=== PATIENT | male | born 1950 | race Two or more races ===

== ENCOUNTER 2024-07-10 10:32 | Emergency (ER) | payer MEDICARE, MEDICAID, SELFPAY ==
[2024-07-10 10:33] VITALS: BMI 32.8
[2024-07-10 10:42] VITALS: BP 156/94; PULSE 77; RESP 18; TEMP 36.3; O2SAT 97; BMI 32.8
--- NOTE | 2024-07-10 10:44 | XR_ITS ---
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
--- NOTE | 2024-07-10 10:44 | XR_ITS ---
EXAMINATION: Ankle, left 3 views . 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
--- NOTE | 2024-07-10 11:24 | EDNOTE_ITS ---
<Statement entered by Sanaz Aguillon MD - 07/11/24 14:26> As co-signing physician, I was present and available for consult prn. I concur with the plan and care as documented by the midlevel provider. Lower Extremity Injury RME/HPI General Chief Complaint: Ankle/Foot Injury Stated Complaint: HURT L ANKLE AGAINST SIDEWALK X1 MONTH AGO Time Seen by Provider: 07/10/24 10:40 Arrival date/time: 07/10/24 10:32 74-year-old male presents to the emergency department today for complaints of left ankle pain ongoing x 1 month after an injury patient was seen by news video editor and referred to the ER for further evaluation to rule out osteomyelitis Limitations: no limitations Related Data Allergies Allergy/AdvReac Type Severity Reaction Status Date / Time No Known Allergies Allergy Verified 07/10/24 10:35 Review of Systems Review of Systems Systems Reviewed: All systems reviewed, normal except as documented Constitutional Constitutional: Reports system reviewed and no additional complaints, except as documented, Denies fever(s) and Denies headache(s) Eyes Eyes: Reports system reviewed and no additional complaints, except as documented and Denies blurry vision ENT Ears, Nose, Mouth, and Throat: Reports system reviewed and no additional complaints, except as documented, Denies headache(s), Denies nasal congestion and Denies nasal discharge Cardiovascular Cardiovascular: Reports system reviewed and no additional complaints, except as documented, Denies chest pain and Denies dyspnea Respiratory Respiratory: Reports system reviewed and no additional complaints, except as documented, Denies chest congestion, Denies cough and Denies dyspnea Gastrointestinal Gastrointestinal: Reports system reviewed and no additional complaints, except as documented and Denies abdominal pain Musculoskeletal Musculoskeletal: Reports system reviewed and no additional complaints, except as documented, Reports arthralgias, Denies numbness, Reports stiffness and Denies tingling Integumentary/Breasts Skin/Breast: Reports system reviewed and no additional complaints, except as documented and Denies rash Neurologic Neurologic: Reports system reviewed and no additional complaints, except as documented, Reports as per HPI, Denies headache(s), Denies numbness and Denies tingling Past Medical History Social History SMOKING STATUS: Never smoker ED Exam General Limitations: Present no limitations General appearance: Present alert and in no apparent distress Head Head exam: Present atraumatic Eye Eye exam: Present normal appearance, PERRL and EOMI; Absent conjunctival injection ENT ENT exam: Present normal exam, normal oropharynx and mucous membranes moist Neck Neck exam: Present normal inspection, full ROM and trachea midline Chest Chest inspection: Present normal inspection and symmetric chest wall rise Respiratory Respiratory exam: Present normal lung sounds bilaterally Cardiovascular Cardiovascular exam: Present regular rate, normal rhythm and normal heart sounds Abdominal Exam Abdominal exam: Present soft and normal bowel sounds Extremities Exam Extremities exam: Present normal inspection, full ROM, tenderness, normal capillary refill and joint swelling; Absent pedal edema or calf tenderness Back Exam Back exam: Present normal inspection and full ROM Neurological Exam Neurological exam: Present alert, oriented X3, CN II-XII intact, normal gait and reflexes normal; Absent motor sensory deficit Psychiatric Psychiatric exam: Present normal affect and normal mood Skin Skin exam: Present warm, dry, intact and normal color Course Quality Measures none Orders Category Date Time Status XR ankle comp LT min 3V Stat Exams 07/10/24 10:44 Completed XR foot comp LT min 3V Stat Exams 07/10/24 10:44 Completed Vital Signs Vital signs: Vital Signs Temperature 97.4 F 07/10/24 10:42 Pulse Rate 77 07/10/24 10:42 Respiratory Rate 18 07/10/24 10:42 Blood Pressure 156/94 H 07/10/24 10:42 Pulse Oximetry (%) 97 07/10/24 10:42 Oxygen Delivery Method Room Air 07/10/24 10:42 O2 saturation 98% room air within the limits Extremity Injury, Lower MDM Narrative MDM Narrative:: 74-year-old male presents to the emergency department today for complaints of left ankle pain ongoing x 1 month after an injury patient was seen by news video editor and referred to the ER for further evaluation to rule out osteomyelitis On exam patient well-appearing patient does not appear ill or toxic in no acute distress Imaging obtained no acute fractures or osteomyelitis noted patient has chronic osteoarthritis Patient given copy of his x-ray reports instructed to follow-up with news video editor for emergent concerns patient instructed return immediately Patient data External records reviewed:: [facility] previous records Clinical information provided by:: patient Social determinants that could affect healthcare access:: none Patient has the following chronic illnesses:: None How is presenting disease/condition affected by chronic disease/condition?: no chronic disease Evaluation data The following diagnostics were reviewed and interpreted by me:: radiology exam(s) Lab and/or radiology exams considered but not ordered:: Radiology obtain Interpretation Summary: Reviewed by me Medications / Prescriptions Medications or Prescriptions considered but not ordered:: Given no meds Medication administrations:: Given no meds Consultations Consultation(s) initiated? (list below): No Diagnosis Extremity Injury, Lower Differential Diagnosis: other (Foot sprain, foot fracture, osteoarthritis, osteomyelitis) Most likely diagnosis given after review of the tests above:: Osteoarthritis Admission Indicated Admission indicated?: not indicated Admission Request Was there a request for admission?: No Disposition Plan Disposition Plan: Discharge Discharge Attestation Discharge Attestation: The patient and all family members were given an opportunity to ask questions and understood the discharge instructions. Discharge instructions specifically effects, indications for sooner follow up or return to the emergency department, and the expected course of current diagnosis. Patient condition: Stable Discharge Plan Plan Patient Disposition: HOME (Self Care) Disposition Comment: Stable Prescriptions/Referrals Referrals: No Primary/Family,Physician [Primary Care Provider] - 07/13/24 Problem List Clinical Impression: Osteoarthritis of ankle and foot, Foot pain, left Patient/Caregiver Discharge Instructions Education Materials: Ankle Circles Additional Instructions: Please follow-up with your news video editor as discussed for worsening symptoms return immediately Print Language: Citizen Of [place] Stand Alone Forms: Sharee Award Info., Patient Portal Info Letter PA/LASHA Supervising Physician PA/LASHA Supervising Physician: Dr. AGUILLON
== END 2024-07-10 12:03 | disposition home or self-care (01) ==
PROVIDERS: Emergency Provider Emergency Medicine
DX: M19.072 Primary osteoarthritis, left ankle and foot (principal)
CPT/HCPCS: 73610; 73630; 99283